=== PATIENT | female | born 1955 | race Caucasian/White ===

== ENCOUNTER → 2017-03-30 | Outpatient (CLI) | payer BC | LOC: KOH-I 11:00 | DX: M79.671 Pain in right foot (principal); M77.31 Calcaneal spur, right foot | CPT/HCPCS: 73630 ==

== ENCOUNTER → 2021-09-27 | Outpatient (CLI) | payer OTHER ==
[~2021-09-27] MED LIST: KLONOPIN1 MG PO; LEVOXYL25 MCG PO; LIPITOR10 MG PO; OMEPRAZOLE40 MG PO; TRELEGY ELLIPT1 EACH INH; TRIAMTERENE-HC1 EAC1 PO; ZOLOFT50 MG PO
== END ==
LOC: US 10:19
DX: R10.84 Generalized abdominal pain (principal); R79.89 Other specified abnormal findings of blood chemistry
CPT/HCPCS: 76705

== ENCOUNTER → 2021-10-03 | Outpatient (CLI) | payer OTHER | LOC: NM 10:23 | DX: R10.9 Unspecified abdominal pain (principal); R79.89 Other specified abnormal findings of blood chemistry | CPT/HCPCS: 78227; A9537; J2805 ==

== ENCOUNTER → 2021-10-16 | Outpatient (CLI) | payer OTHER ==
[~2021-10-16] MED LIST changes: +HYDROCODON-ACE1 EAC4 PO; +PROTONIX40 MG PO; +PROVENTIL HFA6.7 GM INH; +VITAMIN C PO; +VITAMIN D PO; +ZINC PO
[2021-10-16 11:27] LABS: HEMOGLOBIN 13.8 gm/dl (12.3-15.3); RED BLOOD COUNT 4.6 M/UL (4.00-5.10); WHITE BLOOD COUNT 11.3 K/UL (4.5-11.0)
[2021-10-16 11:49] LABS: BUN/CREATININE RATIO 10 (0-10)
== END ==
LOC: OPSV2 09:20
PROVIDERS: Anesthesiology
DX: Z01.818 Encounter for other preprocedural examination (principal)
CPT/HCPCS: 36415; 80048; 85025; 93005

== ENCOUNTER → 2021-10-17 | Day surgery (SDC) | payer OTHER | END | disposition home or self-care (01) | LOC: OR 05:59 | DX: K81.1 Chronic cholecystitis (principal); I10 Essential (primary) hypertension; J44.9 Chronic obstructive pulmonary disease, unspecified; F17.210 Nicotine dependence, cigarettes, uncomplicated; K21.9 Gastro-esophageal reflux disease without esophagitis; E78.5 Hyperlipidemia, unspecified; E03.9 Hypothyroidism, unspecified; G47.33 Obstructive sleep apnea (adult) (pediatric); M81.0 Age-related osteoporosis without current pathological fracture; F32.A Depression, unspecified; F41.9 Anxiety disorder, unspecified; Z79.899 Other long term (current) drug therapy; Z20.822 Contact with and (suspected) exposure to COVID-19 | CPT/HCPCS: C1729; J0690; J1100; J1170; J2001; J2250; J2405; J2704; J2710; J3010; J7030; J7120 ==

== ENCOUNTER → 2021-12-03 | Outpatient (CLI) | payer OTHER | LOC: CT 12:21 | DX: R10.13 Epigastric pain (principal); D72.829 Elevated white blood cell count, unspecified; R50.9 Fever, unspecified; Z90.49 Acquired absence of other specified parts of digestive tract | CPT/HCPCS: Q9967 ==

== ENCOUNTER 2021-12-25 10:33 | Inpatient (IN) | payer OTHER ==
[~2021-12-25] VITALS: Ht 157.5 cm; Wt 64.4 kg
[~2021-12-25 10:33] MED LIST changes: -VITAMIN D PO; +VITAMIN D31250 MCG PO
[2021-12-25 12:46] LABS: ADENOVIRUS F 40/41 Not Detected (Negative); ASTROVIRUS Not Detected (Negative); CAMPYLOBACTER Not Detected (Negative); CRYPTOSPORIDIUM Not Detected (Negative); E.COLI 0157 Not Detected (Negative); ENTAMOEBA HISTOLYTICA Not Detected (Negative); ENTEROAGGREGATIVE E.COLI (EAEC Not Detected (Negative); ENTEROPATHOGENIC E.COLI (EPEC) Not Detected (Negative); ENTEROTOXIGENIC E.COLI (ETEC) Not Detected (Negative); GIARDIA LAMBLIA Not Detected (Negative); NOROVIRUS GI/GII Not Detected (Negative); PLESIOMONAS SHIGELLOIDES Not Detected (Negative); ROTOVIRUS A Not Detected (Negative); SALMONELLA Not Detected (Negative); SAPOVIRUS Not Detected (Negative); SHIG/ENTEROINVAS.ECOLI (EIEC) Not Detected (Negative); SHIGA-LIK TOX.PRO.E.COLI (STEC Not Detected (Negative); VIBRIO Not Detected (Negative); VIBRIO CHOLERAE Not Detected (Negative); YERSINIA ENTEROCOLITICA Not Detected (Negative)
[2021-12-25 12:50] LABS: HEMOGLOBIN 15.7 gm/dl (12.3-15.3); RED BLOOD COUNT 5.13 M/UL (4.00-5.10); WHITE BLOOD COUNT 13.3 K/UL (4.5-11.0)
[2021-12-25 14:21] LABS: CLOSTRIDIUM DIFFICILE TOX A/B Not Detected (Negative)
[2021-12-26 03:57] LABS: HEMOGLOBIN 13.5 gm/dl (12.3-15.3); RED BLOOD COUNT 4.51 M/UL (4.00-5.10)
--- NOTE | 2021-12-26 05:54 | NUR ---
ATTEMPTED TO REMOVE PT'S RINCON. PT REFUSED STATING THAT SHE FELT TOO WEAK AND WAS IN TOO MUCH PAIN TO REMOVE IT RIGHT NOW. COMPLIED WITH PT'S REQUEST. WILL CONTINUE TO MONITOR.
--- NOTE | 2021-12-26 15:20 | NUR ---
I CALLED DR ROBLES AND LEFT A VOICEMAIL FOR HIM TO RECONCILE HOME MEDS, PATIENT WANTS TO MAKE SURE SHE CAN TAKE HER HOME MEDS.
--- NOTE | 2021-12-28 12:32 | NUR ---
pt ambulated with one assist around nursing unit,tolerated well. no bm or gas at this time.encouraged to move.
--- NOTE | 2021-12-28 17:27 | NUR ---
DR ROBLES CALLED PT HAS BEEN PASSING GAS AND AMBULATING. HE ORDERED A CLEAR LIQUID DIET, RESTART HOME MEDS AND REMOVE NG TUBE. PT TOLERATED WELL.
[2021-12-31] MEDS ORDERED: ZOFRAN 4 MG TAB4 MG PO (07:34)
[2021-12-31 08:01] LABS: RED BLOOD COUNT 3.59 M/UL (4.00-5.10); WHITE BLOOD COUNT 11.5 K/UL (4.5-11.0)
[2021-12-31 08:02] LABS: HEMOGLOBIN 10.6 gm/dl (12.3-15.3)
[2021-12-31 08:48] LABS: BUN/CREATININE RATIO 25 (0-10)
--- NOTE | 2021-12-31 10:05 | NUR ---
SPOKE WITH DR. ROBLES, REGARDING HOME MEDS AND RECONCILIATION. PER DR. ROBLES CONTINUE ALL HOME MEDS. DID NOT GO OVER HOME MEDS WITH DR. ROBLES, HIS REQUEST STATED I AM FAMILIAR WITH HER HOME MEDS. JUST CONTINUE ALL. SOBIA SERRATO R.N. ADMISSION/DISCHARGE NURSE.
== END 2021-12-31 10:59 | disposition home or self-care (01) | DRG 330 ==
LOC: ER1 10:33 → M/S 17:14 → CDU 17:14 → M/S 23:05
PROVIDERS: Family Medicine; Physician Assistant; ADMIT Surgery
PROC: 0DBL0ZZ Excision of Transverse Colon, Open Approach (ICD-10-PCS; 2021-12-25)
PROC: 0DBF0ZZ Excision of Right Large Intestine, Open Approach (ICD-10-PCS; principal; 2021-12-25 19:51)
DX: K63.89 Other specified diseases of intestine (principal); E44.1 Mild protein-calorie malnutrition; Z68.1 Body mass index [BMI] 19.9 or less, adult; K55.9 Vascular disorder of intestine, unspecified; D73.89 Other diseases of spleen; Z20.822 Contact with and (suspected) exposure to COVID-19; K21.9 Gastro-esophageal reflux disease without esophagitis; F17.210 Nicotine dependence, cigarettes, uncomplicated; J44.9 Chronic obstructive pulmonary disease, unspecified; F41.9 Anxiety disorder, unspecified; Z96.653 Presence of artificial knee joint, bilateral; E78.5 Hyperlipidemia, unspecified; I10 Essential (primary) hypertension; E78.00 Pure hypercholesterolemia, unspecified; K76.0 Fatty (change of) liver, not elsewhere classified; E03.9 Hypothyroidism, unspecified; Z98.51 Tubal ligation status; Z90.710 Acquired absence of both cervix and uterus; Z90.49 Acquired absence of other specified parts of digestive tract
CPT/HCPCS: 36415; 71045; 80048; 80053; 81001; 82378; 82962; 85025; 85027; 87507; 96374; 96375; 99285; C9113; J0690; J1100; J1170; J2060; J2250; J2270; J2405; J2704; J3010; J7030; J7120; Q9967; U0002